=== PATIENT | female | born 1980 | race Caucasian/White ===

== ENCOUNTER → 2023-11-29 08:31 | Outpatient (REF) | payer BC, SELFPAY | LOC: HWRAD 08:31 | PROVIDERS: ATTENDING PHYSICIAN Family Medicine | DX: S36.113S Laceration of liver, unspecified degree, sequela (principal); R19.00 Intra-abdominal and pelvic swelling, mass and lump, unspecified site | CPT/HCPCS: 74177; Q9967 ==